=== PATIENT | female | born 2000 | race Caucasian/White ===

== ENCOUNTER 2022-06-18 18:24 | Emergency (ER) | payer BC, OTHER ==
[~2022-06-18] VITALS: Ht 162.6 cm; Wt 43.1 kg
[~2022-06-18 18:24] MED LIST: TRI-TAB PO; VITA1CAP25 PO
[2022-06-18] MEDS ORDERED: ALPRAZolam 0.5 MG TAB PO ONE (19:15)
[2022-06-18 22:39] VITALS: BP 107/69
== END 2022-06-18 22:47 | disposition home or self-care (01) ==
LOC: M ED 18:24
DX: F41.9 Anxiety disorder, unspecified (principal); F32.9 Major depressive disorder, single episode, unspecified; Z87.442 Personal history of urinary calculi; F17.290 Nicotine dependence, other tobacco product, uncomplicated; F12.10 Cannabis abuse, uncomplicated; Z79.3 Long term (current) use of hormonal contraceptives; Z79.899 Other long term (current) drug therapy; Z88.8 Allergy status to other drugs, medicaments and biological substances